=== PATIENT | male | born 1990 | race Caucasian/White ===

== ENCOUNTER → 2022-10-10 09:50 | Outpatient (BNVA) | payer OTHER, SELFPAY | PROVIDERS: PCP Nurse Practitioner Family; Visit Provider Psychiatry & Neurology Neurology ==

== ENCOUNTER → 2022-11-26 14:41 | Outpatient (REF) | payer OTHER, SELFPAY | LOC: HO.SL 14:41 | PROVIDERS: PCP Nurse Practitioner Family; Visit Provider Psychiatry & Neurology Neurology | DX: G47.33 Obstructive sleep apnea (adult) (pediatric) (principal); G47.10 Hypersomnia, unspecified; R06.83 Snoring | CPT/HCPCS: 95806 ==

== ENCOUNTER → 2022-11-26 14:51 | Outpatient (BNV) | payer OTHER, SELFPAY | PROVIDERS: PCP Nurse Practitioner Family; Visit Provider Psychiatry & Neurology Neurology | DX: G47.33 Obstructive sleep apnea (adult) (pediatric) (principal) | CPT/HCPCS: 95806 ==

== ENCOUNTER 2022-12-03 14:58 | Outpatient (AMB) | payer OTHER, SELFPAY ==
--- NOTE | 2022-12-03 15:05 | A.OFFPC_ITS ---
Vital Signs 12/03/22 15:06 12/03/22 15:30 Height 6 ft 3 in Weight 301 lb BMI 37.6 BP 146/84 H 140/80 H Blood Pressure Location Rt brachial Rt brachial Position Sitting Sitting Respiration 12 Pulse 78 Pulse Source Pulse Oximeter Temp 98.1 F Temp Source Temporal Artery Scan Pulse Oximetry (%) 98 Oxygen Delivery Method Room Air Intake Visit Reasons: f/u HTN Intake Note: Patient states that he is still experiencing persistent feeling of lightheadedness, dizziness, dream-like sensation, and twitching of the left eye. Patient states that his twitch in his eye almost closes when the twitch starts. Patient states that the his neurologist stated that it may be due to migranes. Patient was also referred to do a sleep study. [employer] Required: No Accompanied by: Self / Same As Patient Allergies No Known Allergies Allergy (Verified 12/03/22 15:20) Medication List - Last Reconciled 12/03/22 by Ibis Jackson CNP amlodipine 5 mg PO DAILY 30 days Tobacco use date assessed: 06/19/22 Dental Screening Dental Screen Date: 12/03/22 Did you have a dental visit in the last 12 months?: No Did you have a dental problem in the last 6 months where you did not have access to dental care?: No Was dental information given to patient?: Yes HPI HPI Comments History of Present Illness Details 32-year-old male presents for hypertension follow-up. He was evaluated by Neurology on 10/10/2022 and was diagnosed with vestibular migraines. He was prescribed Propanolol ER 60 mg daily and was advised to hold amlodipine and monitor blood pressure. Home sleep study was ordered to rule out sleep apnea. He states he did not start Propranolol because of its multiple side effects he read after picking up the medication. He intends to discuss an alternate medication with neurology. He notes he has been taking amlodipine as prescribed. He states he monitor his blood pressure daily at home and readings is consistently in the 120s/80s. He notes he continues to experience feeling of lightheadedness, dizziness, dream-like sensation, and twitching of the left eye. His symptoms have improved since his last visit and have been intermittent instead of persistent. He notes he had sleep study last Saturday. [facility] Medical History (Updated 10/10/22 @ 11:16 by Beth Lawrence MD) Hypersomnia Snoring Vestibular migraine Family History Mother HTN (hypertension) Pacemaker Father Cancer Social History Housing: House Alcohol intake: never Patient Tobacco Use Status: Never used Tobacco e-Cigarette/Vaping Use: Never Used service: No Current occupational status: employed Current occupation: Self Employed Cognitive needs: No Hearing needs: No Vision needs: No Questionnaire PHQ-9 Over the last 2 weeks, how often have you been bothered by any of the following problems? 1. Little interest or pleasure in doing things: not at all 2. Feeling down, depressed, or hopeless: not at all 3. Trouble falling or staying asleep, or sleeping too much: several days 4. Feeling tired or having little energy: several days 5. Poor appetite or overeating: not at all 6. Feeling bad about yourself - or that you are a failure or have let yourself or your family down: not at all 7. Trouble concentrating on things, such as reading the newspaper or watching television: not at all 8. Moving or speaking so slowly that other people could have noticed. Or the opposite - being so fidgety or restless that you have been moving around a lot more than usual: not at all 9. Thoughts that you would be better off or of hurting yourself in some way: not at all Total score: 2 Depression Screening Interpretation: Negative Source: Developed by Drs. Blas Muro, Joanna Carrasco, Javi Corrigan and colleagues, with an educational joanne from [employer]. Thrive Questionnaire Date Thrive assessed: 06/19/22 ROSA ELENA-7 AMB Questionnaire ROSA ELENA-7 Date ROSA ELENA - 7 assessed: 12/03/22 Feeling nervous, anxious, or on edge: 0 = Not at all Not being able to stop or control worryin = Several days Worrying too much about different things: 1 = Several days Trouble relaxin = Not at all Being so restless that it is hard to sit still: 0 = Not at all Becoming easily annoyed or irritable: 1 = Several days Feeling afraid as if something awful might happen: 0 = Not at all Total ROSA ELENA-7 score (0-4 normal; 5-9 mild; 10-14 moderate; 15-21 severe): 3 Source: Developed by Drs. Blas Muro, Joanna Carrasco, Javi Corrigan and colleagues, with an educational joanne from [employer]. Review of Systems Const Details: Const Denies chills, Denies fatigue, Denies fever(s), Denies headache(s) and Denies weakness ENT Denies dizziness and Denies headache(s) Card Denies chest pain, Denies lightheadedness, Denies dyspnea and Denies other (Palpitations) Resp Denies cough, Denies dyspnea, Denies wheezing and Denies other ( shortness of breath) GI Denies abdominal pain, Denies melena, Denies hematochezia, Denies change in bowel habits, Denies dyspepsia and Denies nausea Denies hematuria and Denies dysuria Musc Denies abnormal gait, Denies myalgias, Denies arthralgias, Denies numbness and Denies tingling Skin/Breast Denies rash, Denies unusual bruising and Denies wounds Neuro Denies abnormal gait, Denies dizziness, Denies headache(s), Denies memory loss, Denies numbness, Denies Sensory deficit (Neuro), Denies tingling and Denies weakness Psych Denies anxiety and Denies depression Endo Denies fatigue Aller/Immun Denies wheezing Physical exam (Primary Care) Tobacco/Smoking Status: Tobacco use Status Tobacco use date assessed 06/19/22 12/03/22 15:06 Patient Tobacco Use Status Never used Tobacco 12/03/22 15:06 Depression Screening Interpretation: Negative Thrive Assessment: Date of Thrive Assessment Date Thrive assessed 06/19/22 12/03/22 15:06 Const Other: General: no acute distress and well developed Nutritional Appearance: well nourished Orientation/consciousness: patient oriented x3 HENMT Head: Yes normocephalic and Yes atraumatic Eyes General: appearance normal, both eyes and all related structures Pupils: Equal, round and reactive pupils present EOM: EOMs intact bilaterally Resp Effort & Inspection: normal respiratory effort Auscultation: clear to auscultation bilaterally Cardio Rate: regular rate Rhythm: regular rhythm Heart sounds: S1 normal heart sound present, S2 normal heart sound present, no gallops, no murmurs and no rubs GI Palpation (GI): No Abdominal aortic bruit present, Soft to palpation, nontender, No hepatosplenomegaly present and No Rebound tenderness present Auscultation: normal bowel sounds General: Yes no CVA tenderness Back/Spine/Pelvis Back: no CVA tenderness Cervical Spine: cervical ROM normal and No Cervical spine tenderness Thoracic/Lumbar Spine: thoraco-lumbar ROM normal, No pain with thoraco-lumbar ROM, No thoracic spinal tenderness and No lumbar spinal tenderness Extrem General: Yes normal to inspection, No edema and No calf tenderness Skin General: warm and dry. Normal skin color. Normal skin turgor Lesions: no lesions Rashes: no rashes Trauma: no lacerations or abrasions Wounds: no wounds Nails: normal Neuro General: patient oriented x3, gait normal and no focal neuro Cranial nerves: Yes Equal, round and reactive pupils present Cognition (Neuro): normal cognition Gait exam (Neuro): Normal gait present Sensory Exam: No Sensory deficit (Neuro) Psych Affect: normal affect Assessment and Plan Assessment & Plan (1) Hypertension: Code(s): I10 - Essential (primary) hypertension Plan: Blood pressure is 140/80, slightly above goal of less than 140/90 Take amlodipine as prescribed Low-sodium diet encouraged Continue follow-up with Neurology as planned He had blood work done at [facility] ED earlier this year. TSH was not done. Will order TSH and urinalysis; encouraged to get blood work and urinalysis done before his next visit Follow-up in 1 month for complete physical exam Return sooner with symptoms or concerns Verbalized understanding and agreed with treatment plan. Orders: Orders TSH reflex Free T4 Today I10 - Essential (primary) hypertension UA CC w/rflx Micro + Cult Today I10 - Essential (primary) hypertension Coding Level of Care Code Est Pt Level 3 (69383) Diagnoses Hypertension I10
[2022-12-03 15:06] VITALS: BP 146/84; PULSE 78; RESP 12; TEMP 36.7; O2SAT 98; BMI 37.6
[2022-12-03 15:30] VITALS: BP 140/80
== END 2022-12-03 15:43 | disposition home or self-care (01) ==
PROVIDERS: PCP Nurse Practitioner Family; Visit Provider Nurse Practitioner Family
DX: I10 Essential (primary) hypertension (principal)
CPT/HCPCS: 99213

== ENCOUNTER 2022-12-26 07:11 | Outpatient (REF) | payer OTHER, SELFPAY ==
[2022-12-26 12:31] LABS: TSH reflex Free T4 1.12 uIU/mL (0.32-4.0)
[2022-12-26 15:18] LABS: Appearance Urine Clear; Color Urine Yellow; Glucose Urine UA Negative (Negative); Leukocyte Esterase Urine Negative (Negative); Nitrite Urine Negative (Negative); Specific Gravity - Urine 1.025 (1.005-1.025); Urine Blood Negative (Negative); Urine Ketones Negative (Negative); Urine Protein Negative (Neg-Trace)
== END 2022-12-26 07:12 | disposition home or self-care (01) ==
LOC: HO.WFDLDS 07:11
PROVIDERS: Visit Provider Nurse Practitioner Family
DX: I10 Essential (primary) hypertension (principal)
CPT/HCPCS: 36415; 81003; 84443

== ENCOUNTER 2022-12-28 13:03 | Outpatient (AMB) | payer OTHER, SELFPAY ==
--- NOTE | 2022-12-28 13:05 | A.OFFVIS_ITS ---
Intake Vital Signs 12/28/22 13:11 BP 128/82 Blood Pressure Location Rt brachial Position Sitting Pulse 86 Pulse Source Pulse Oximeter Pulse Oximetry (%) 97 Intake Visit Reasons: 2m f/u neurological issues - LVM Intake Note: patient presents for 2 month follow up. Patient states When i saw her last time she prescribed a medication and i believe is giving me dizzy spells. Allergies No Known Allergies Allergy (Verified 12/28/22 13:09) HPI HPI Comments History of Present Illness Details 32 y/o male patient presents for follow up of sleep study and dizziness. The home sleep study result was significant for snoring and mild degree of sleep apnea. AHI was 6/hr and oxygen david was 79%. Pt started APAP [id number] two weeks ago, but had cold and sinus congestion. He could not use the CPAP last week, he kept blowing his nose and not tolerated. The compliance and therapy response (11/24/22-12/23/22) reviewed with the patient. The usage days 27% and the average usage hours 5 hrs. The mean pressure was 6 and the max pressure was 10.8. The AHI was 3.4/hr. Pt reports that he had sinus congestion, and could not use CPAP well. Pt also reports frontal headaches 1/week. He has photophobia but no nausea. The headaches can last 1-2 days, and be really bad .He denies double vision, ear pain, tinnitus or hearing loss. Dim light and certain patterns triggers headache. He was on propranolol 60 ER daily, but his BP medicaion changed to amlodipine and propranolol stopped. [facility] Medical History Hypersomnia Snoring Vestibular migraine Family History Mother HTN (hypertension) Pacemaker Father Cancer Social History Housing: House Alcohol intake: never Patient Tobacco Use Status: Never used Tobacco e-Cigarette/Vaping Use: Never Used service: No Current occupational status: employed Current occupation: Self Employed Cognitive needs: No Hearing needs: No Vision needs: No Review of Systems Const All systems reviewed & are unremarkable except as noted in HPI and below Physical Exam Vital Signs: Last Vital Signs Pulse 86 12/28/22 13:11 BP 128/82 12/28/22 13:11 Pulse Ox 97 12/28/22 13:11 Const General: cooperative, healthy appearing and comfortable Nutritional Appearance: obese Orientation/consciousness: patient oriented x3 Limitations: no limitations Eyes Pupils: Equal, round and reactive pupils present Neuro General: patient oriented x3, tone normal, moves all extremities and no focal motor deficits Cranial nerves: Yes Facial sensation intact/muscles of mastication intact, Yes Equal, round and reactive pupils present, Yes Bilaterally intact EOM present, Yes Nystagmus not present, Yes Normal facial strength present, Yes Midline tongue present and Yes Symmetric palate elevation present Cognition (Neuro): normal cognition Gait exam (Neuro): Normal gait present Motor exam (neuro): 5/5 motor strength present throughout and Normal motor muscle tone present throughout Deep tendon reflexes (DTR's): Right triceps reflex intensity grade: 2+, Left triceps reflex intensity grade: 2+, Rt Biceps (C5, C6): 2+, Left biceps reflex intensity grade: 2+, Right brachioradialis reflex intensity grade: 2+, Left brachioradialis reflex intensity grade: 2+, Right patellar reflex intensity grade: 2+ and Left patellar reflex intensity grade: 2+ Coordination: [id number] test normal and tandem gait normal Assessment & Plan Assessment & Plan (1) ELAINE on CPAP: Comment: Mild degree of sleep apnea. Code(s): G47.33 - Obstructive sleep apnea (adult) (pediatric) Plan Advised patient to continue to use APAP [id number]. Stressed compliance, use CPAP nightly and more than 4 hrs. May try sumatriptan 100 mg at onset of headache, may repeat in 2 hrs but not exceed 4 tabs a week. Advised patient to try Neti Pot to clean nasal congestion. Medications: New sumatriptan succinate do not exceed 2 doses per 24 hrs 100 mg PO Q2-4H PRN 14 tabs 4RF migraine headache 30 days Coding Level of Care Code Est Pt Level 4 (51179) Diagnoses ELAINE on CPAP G47.33
[2022-12-28 13:11] VITALS: BP 128/82; PULSE 86; O2SAT 97
== END 2022-12-28 13:35 | disposition home or self-care (01) ==
PROVIDERS: PCP Nurse Practitioner Family; Visit Provider Nurse Practitioner Family
DX: G47.33 Obstructive sleep apnea (adult) (pediatric) (principal)
CPT/HCPCS: 99214

== ENCOUNTER → 2022-12-28 13:03 | Outpatient (BNVA) | payer OTHER, SELFPAY | PROVIDERS: PCP Nurse Practitioner Family; Visit Provider Nurse Practitioner Family | DX: R06.83 Snoring (principal); G47.10 Hypersomnia, unspecified; G43.809 Other migraine, not intractable, without status migrainosus ==